=== PATIENT | male | born 1940 | race African-American/Black ===

== ENCOUNTER → 2016-08-09 | Outpatient (CLI) | payer MEDICARE ==
[~2016-08-09] MED LIST: ASPI81TA82 PO; CIPR500T4 PO; JALYCAP PO; LEVO.1 PO; METO25 PO; MOTI25CH PO; OMEGCAP21 PO; PERC5TAB12 PO; PIOG30 PO; PRIN5TAB PO; ROSU40 PO
[2016-08-09 13:28] LABS: ANION GAP 8 MEQ/L (5-15); AST (GOT) 43 U/L (15-37); BICARBONATE 26.1 MEQ/L (21.0-32.0); BLOOD UREA NITROGEN 17 MG/DL (7-18); CHLORIDE 99 MEQ/L (98-107); GLOMERULAR FILTRATION RATE 53 ML/MIN (>89); SODIUM (NA) 133 MEQ/L (136-145)
[2016-08-09 13:36] LABS: ALKALINE PHOSPHATASE 64 U/L (45-117); ALT (GPT) 37 U/L (12-78); GLUCOSE,FASTING 343 MG/DL (74-99); HDL CHOLESTEROL 56.4 MG/DL (40.0-60.0); LDL CHOLESTEROL 41 MG/DL (0-99); TOTAL BILIRUBIN ADULT 1.1 MG/DL (0.2-1.0); URIC ACID 6.1 MG/DL (2.6-7.2)
[2016-08-09 13:44] LABS: POTASSIUM 4.9 MEQ/L (3.5-5.1)
[2016-08-09 18:29] LABS: HEMOGLOBIN A1a 1.4 %; HEMOGLOBIN A1b 1.3 %; HEMOGLOBIN Ao 69.6 %; HEMOGLOBIN F 2.5 %; HEMOGLOBIN LA1C 3.9 %; HEMOGLOBIN P3 6.1 %
== END ==
LOC: PLAB 10:45
PROVIDERS: ATTEND Family Medicine
DX: E03.9 Hypothyroidism, unspecified (principal); E55.9 Vitamin D deficiency, unspecified; E78.5 Hyperlipidemia, unspecified; M10.9 Gout, unspecified; E11.65 Type 2 diabetes mellitus with hyperglycemia
CPT/HCPCS: 36415; 80053; 80061; 82306; 83036; 84443; 84550

== ENCOUNTER → 2016-09-18 | Outpatient (CLI) | payer MEDICARE | LOC: PLAB 08:30 | PROVIDERS: ATTEND Urology | DX: R97.20 Elevated prostate specific antigen [PSA] (principal) | CPT/HCPCS: 36415; 84153; 84154 ==

== ENCOUNTER → 2016-10-30 | Outpatient (CLI) | payer MEDICARE ==
[2016-10-30 15:21] LABS: AUTOMATED NEUTROPHIL # 2.9 TH/MM3 (1.8-7.7); BASOPHIL % 0.7 % (0.0-2.0); EOSINOPHIL # 0.1 TH/MM3 (0-0.4); EOSINOPHIL % 1.7 % (0.0-4.0); HEMATOCRIT 43.4 % (39.0-51.0); LYMPH % 36.5 % (9.0-44.0); LYMPHOCYTE # 2.1 TH/MM3 (1.0-4.8); MEAN CELL VOLUME 89.5 FL (80.0-100.0); MEAN CORPUSCULAR HEMOGLOBIN 28.7 PG (27.0-34.0); MEAN CORPUSCULAR HGB CONC 32.1 % (32.0-36.0); MONO % 10.3 % (0.0-8.0); NEUT % 50.8 % (16.0-70.0); PLATELET COUNT 106 TH/MM3 (150-450); RED BLOOD COUNT 4.85 MIL/MM3 (4.50-5.90); RED CELL DISTRIBUTION WIDTH 16.7 % (11.6-17.2); WHITE BLOOD COUNT 5.7 TH/MM3 (4.0-11.0)
[2016-10-30 15:32] LABS: HEMO FLAGS DIFF FINAL
[2016-10-30 17:07] LABS: ALKALINE PHOSPHATASE 68 U/L (45-117); ALT (GPT) 59 U/L (12-78); ANION GAP 9 MEQ/L (5-15); AST (GOT) 48 U/L (15-37); BICARBONATE 26.1 MEQ/L (21.0-32.0); BLOOD UREA NITROGEN 18 MG/DL (7-18); CHLORIDE 107 MEQ/L (98-107); FREE T4 1.11 NG/DL (0.76-1.46); GLOMERULAR FILTRATION RATE 55 ML/MIN (>89); POTASSIUM 3.9 MEQ/L (3.5-5.1); SODIUM (NA) 142 MEQ/L (136-145); TOTAL BILIRUBIN ADULT 1.2 MG/DL (0.2-1.0); URIC ACID 7.1 MG/DL (2.6-7.2)
[2016-10-30 17:33] LABS: HEMOGLOBIN A1a 1.3 %; HEMOGLOBIN A1b 1.7 %; HEMOGLOBIN Ao 83.7 %; HEMOGLOBIN P3 3.7 %
== END ==
LOC: PLAB 14:10
PROVIDERS: ATTEND Family Medicine
DX: I10 Essential (primary) hypertension (principal); E11.65 Type 2 diabetes mellitus with hyperglycemia; E78.5 Hyperlipidemia, unspecified; M10.9 Gout, unspecified; E03.9 Hypothyroidism, unspecified
CPT/HCPCS: 36415; 80053; 83036; 84439; 84443; 84550; 85025

== ENCOUNTER → 2017-03-01 | Outpatient (CLI) | payer MEDICARE ==
[2017-03-01 13:32] LABS: AUTOMATED NEUTROPHIL # 2.1 TH/MM3 (1.8-7.7); BASOPHIL % 0.7 % (0.0-2.0); EOSINOPHIL # 0.1 TH/MM3 (0-0.4); EOSINOPHIL % 2.4 % (0.0-4.0); HEMATOCRIT 50.6 % (39.0-51.0); HEMO FLAGS DIFF FINAL; LYMPH % 41.4 % (9.0-44.0); MEAN CELL VOLUME 88.3 FL (80.0-100.0); MEAN CORPUSCULAR HEMOGLOBIN 28.6 PG (27.0-34.0); MEAN CORPUSCULAR HGB CONC 32.4 % (32.0-36.0); MONO % 12.2 % (0.0-8.0); NEUT % 43.3 % (16.0-70.0); PLATELET COUNT 123 TH/MM3 (150-450); RED BLOOD COUNT 5.73 MIL/MM3 (4.50-5.90); RED CELL DISTRIBUTION WIDTH 17.3 % (11.6-17.2); WHITE BLOOD COUNT 4.8 TH/MM3 (4.0-11.0)
[2017-03-01 13:42] LABS: HEMOGLOBIN A1a 1.3 %; HEMOGLOBIN A1b 2.2 %; HEMOGLOBIN Ao 80.7 %; HEMOGLOBIN LA1C 2.4 %; HEMOGLOBIN P3 4.6 %
[2017-03-01 14:08] LABS: WESTERGREN SEDIMENTATION RATE 1 mm/hr (0-20)
== END ==
LOC: PLAB 09:53
DX: G45.3 Amaurosis fugax (principal)
CPT/HCPCS: 36415; 83036; 85025; 85652; 86140

== ENCOUNTER → 2017-07-15 | Outpatient (CLI) | payer MEDICARE ==
[2017-07-15 11:15] LABS: ALBUMIN 3.7 GM/DL (3.4-5.0); ALT (GPT) 17 U/L (12-78); AST (GOT) 24 U/L (15-37); BICARBONATE 27.2 MEQ/L (21.0-32.0); BLOOD UREA NITROGEN 17 MG/DL (7-18); CALCIUM 8.9 MG/DL (8.5-10.1); CHLORIDE 103 MEQ/L (98-107); CHOLESTEROL 132 MG/DL (120-200); CREATININE 1.54 MG/DL (0.60-1.30); GLOMERULAR FILTRATION RATE 53 ML/MIN (>89); GLUCOSE,FASTING 113 MG/DL (74-99); SODIUM (NA) 139 MEQ/L (136-145)
[2017-07-15 11:24] LABS: ALKALINE PHOSPHATASE 40 U/L (45-117); CHOLESTEROL/ HDL RATIO 2.06 RATIO; HDL CHOLESTEROL 63.9 MG/DL (40.0-60.0); LDL CHOLESTEROL 60 MG/DL (0-99); THYROXINE (T4) 10.8 MCG/DL (4.5-12.1); TOTAL BILIRUBIN ADULT 1.2 MG/DL (0.2-1.0); TOTAL PROTEIN 7.7 GM/DL (6.4-8.2); TRIGLYCERIDES 42 MG/DL (42-150)
== END ==
LOC: PLAB 09:03
PROVIDERS: ATTEND Internal Medicine Interventional Cardiology
DX: R94.39 Abnormal result of other cardiovascular function study (principal); R60.0 Localized edema; I10 Essential (primary) hypertension; E78.2 Mixed hyperlipidemia; Z79.899 Other long term (current) drug therapy
CPT/HCPCS: 36415; 80053; 80061; 82550; 84436; 84443

== ENCOUNTER 2017-10-07 12:23 | Emergency (ER) | payer MEDICARE ==
[~2017-10-07] VITALS: Ht 167.6 cm; Wt 84.6 kg
[2017-10-07 12:26] VITALS: BP 219/88; PULSE 87; RESP 16; TEMP 97.5; O2SAT 98
[2017-10-07 13:13] LABS: BILIRUBIN, URINE NEG (NEG); BLOOD, URINE TRACE (NEG); GLUCOSE,URINE 1000 OR GREATER mg/dL (NEG); KETONE, URINE NEG (NEG); NITRITE,URINE NEG (NEG); URINE COLOR YELLOW (YELLW/STRAW); URINE LEUKOCYTE ESTERASE NEG (NEG)
--- NOTE | 2017-10-07 13:18 | PD ---
HPI Chief Complaint: Flank/Kidney Pain Time Seen by Provider: 12:34 Travel History International Travel<30 days: No Contact w/Intl Traveler<30days: No Traveled to known affect area: No History of Present Illness HPI This 77-year-old male is complaining of left flank pain. Pain is been going on for several days. It is aggravated by certain movements. He has not noted any dysuria or hematuria. He is concerned that it may be his kidney. The pain was quite severe at times. It is a bit intermittent. There is no associated fever vomiting or diarrhea. Seem to be aggravated by certain movements of his neck PFSH Past Medical History Hx Anticoagulant Therapy: Yes AAA: Yes (aortic arch aneurysm repair 2008) Heart Rhythm Problems: No Cardiac Catheterization: Yes Cardiovascular Problems: Yes (htn) High Cholesterol: Yes Chest Pain: Yes Congestive Heart Failure: No Diabetes: Yes Patient Takes Glucophage: No Diminished Hearing: No Gastrointestinal Disorders: No Genitourinary: Yes (enlarge prostate) Hypertension: Yes Musculoskeletal: No Neurologic: No Reproductive: No Respiratory: No Myocardial Infarction: No Sleep Apnea: Yes Thyroid Disease: Yes ?: Not Past Surgical History Abdominal Surgery: Yes (HERNIA REPAIR - inguinal & umbilical hernia repair 2002 ) Cardiac Surgery: Yes (AAA REPAIR) Ear Surgery: No Endocrine Surgery: No Eye Surgery: No Genitourinary Surgery: Yes (vasectomy 2006) Gynecologic Surgery: No Neurologic Surgery: No Oral Surgery: No Thoracic Surgery: No Other Surgery: Yes (HERNIA REPAIRS) Social History Alcohol Use: Yes (RARELY) Tobacco Use: No Substance Use: No Allergies-Medications (Allergen,Severity, Reaction): Coded Allergies: No Known Allergies (Verified Adverse Reaction, Unknown, 10/07/17) Reported Meds & Prescriptions Reported Meds & Active Scripts Active Reported Actos (Pioglitazone HCl) 30 Mg Tab 30 Mg PO DAILY Aspirin Children's (Aspirin) 81 Mg Chew 81 Mg CHEW DAILY Synthroid (Levothyroxine Sodium) 100 Mcg Tab 100 Mcg PO DAILY Crestor (Rosuvastatin Calcium) 40 Mg Tab 40 Mg PO DAILY Lisinopril 5 Mg Tab 5 Mg PO DAILY Review of Systems General / Constitutional: No: Fever, Chills Eyes: No: Diploplia, Blurred Vision HENT: No: Headaches, Vertigo Cardiovascular: No: Chest Pain or Discomfort Respiratory: No: Cough, Shortness of Breath Gastrointestinal: No: Nausea, Vomiting, Diarrhea Genitourinary: No: Frequency, Dysuria Musculoskeletal: No: Myalgias, Arthralgias, Limited ROM Skin: No Rash, No Itching Neurologic: No: Dizziness Endocrine: No: Heat Intolerance Hematologic/Lymphatic: No: Easy Bruising Physical Exam Narrative GENERAL: Well-developed male SKIN: Focused skin assessment warm/dry. HEAD: Atraumatic. Normocephalic. EYES: Pupils equal and round. No scleral icterus. No injection or drainage. ENT: No nasal bleeding or discharge. Mucous membranes pink and moist. NECK: Trachea midline. No JVD. CARDIOVASCULAR: Regular rate and rhythm. No murmur appreciated. RESPIRATORY: No accessory muscle use. Clear to auscultation. Breath sounds equal bilaterally. GASTROINTESTINAL: Abdomen soft, non-tender, nondistended. Hepatic and splenic margins not palpable. There is left CVA tenderness MUSCULOSKELETAL: No obvious deformities. No clubbing. No cyanosis. No edema. NEUROLOGICAL: Awake and alert. No obvious cranial nerve deficits. Motor grossly within normal limits. Normal speech. PSYCHIATRIC: Appropriate mood and affect; insight and judgment normal. Data Data Last Documented VS Vital Signs Date Time Temp Pulse Resp B/P (MAP) Pulse Ox O2 Delivery O2 Flow Rate FiO2 10/07/17 14:50 84 16 98 10/07/17 12:26 97.5 Orders Orders Urinalysis - C+S If Indicated (10/07/17 12:24) Ct Abd/Pel W/O Iv Contrast (10/07/17 12:48) Labs Laboratory Tests Test 10/07/17 13:08 Urine Collection Type VOIDED Urine Color YELLOW Urine Turbidity CLEAR Urine pH 6.0 Urine Specific [place] 1.010 Urine Protein NEG mg/dL Urine Glucose (UA) 1000 OR GREATER mg/dL Urine Ketones NEG mg/dL Urine Occult Blood TRACE Urine Nitrite NEG Urine Bilirubin NEG Urine Urobilinogen 0.2 MG/DL Urine Leukocyte Esterase NEG Urine WBC 0-2 /hpf Urine Squamous Epithelial Cells 0-2 /hpf Microscopic Urinalysis Comment CULT NOT INDICATED MDM Medical Decision Making Medical Screen Exam Complete: Yes Emergency Medical Condition: Yes Medical Record Reviewed: Yes Differential Diagnosis Differential l includes muscular pain, renal colic, space-occupying lesion Narrative Course Urine is negative. CT is shows a small cyst on the left kidney. Otherwise negative. EKG shows a Wenckebach rhythm. Patient is not having any chest pain to follow-up with his own medical doctor Diagnosis Primary Impression: Flank pain Disposition: 01 DISCHARGE HOME Condition: Stable Maxime Saez MD Oct 07, 2017 13:18
[2017-10-07 13:21] LABS: SQUAMOUS EPITHELIAL CELL URINE 0-2 /hpf (0-5); WBC, URINE 0-2 /hpf (0-5)
[2017-10-07 13:57] VITALS: BP 201/79
[2017-10-07] MEDS ORDERED: ASPI81CH7 CHEW (14:17)
[2017-10-07] MEDS ORDERED: PIOG30 PO (14:17)
[2017-10-07] MEDS ORDERED: ROSU40 PO (14:17)
[2017-10-07] MEDS ORDERED: LISI-519 PO (14:17)
[2017-10-07] MEDS ORDERED: LEVO.1 PO (14:17)
--- NOTE | 2017-10-07 14:42 | RADRPT ---
EXAM DATE/TIME: 10/07/2017 14:27 [facility] COMPARISON: No previous studies available for comparison. INDICATIONS : Left flank pain. ORAL CONTRAST: No oral contrast ingested. RADIATION DOSE: 12.43 CTDIvol (mGy) MEDICAL HISTORY : Hypertension. Aneurysm, abdominal. SURGICAL HISTORY : Abdominal aortic aneurysm repair. Hernia repair. ENCOUNTER: Initial ACUITY: 3 days PAIN SCALE: 6/10 LOCATION: Left flank TECHNIQUE: Volumetric scanning of the abdomen and pelvis was performed. Using automated exposure control and ad justment of the mA and/or kV according to patient size, radiation dose was kept as low as reasonably achievable to obtain optimal diagnostic quality images. DICOM format image data is available electro nically for review and comparison. FINDINGS: LOWER LUNGS: The visualized lower lungs are clear. LIVER: Homogeneous density without lesion. There is no dilation of the biliary tree. There is high density layering dependently in the gallbladder with no wall thickening or inflammatory change. SPLEEN: Normal size without lesion. PANCREAS: Within normal limits. KIDNEYS: Normal in size and shape. There is no solid mass, stone, or hydronephrosis. There is an apparent sma ll low density cyst involving the posterior mid left kidney measuring approximately 9 Hounsfield unit s. ADRENAL GLANDS: Within normal limits. VASCULAR: There is no aortic aneurysm. BOWEL/MESENTERY: The stomach, small bowel, and colon demonstrate no acute abnormality. There is no free intraperitone al air or fluid. ABDOMINAL WALL: Postsurgical changes are noted status post hernia repair with no evidence of recurrent hernia. There are postsurgical changes in the anterior pelvis as well. RETROPERITONEUM: There is no lymphadenopathy. BLADDER: No wall thickening or mass. REPRODUCTIVE: Within normal limits. INGUINAL: There is no lymphadenopathy or hernia. MUSCULOSKELETAL: Within normal limits for patient age. CONCLUSION: 1. The kidneys are unremarkable in appearance except for a probable small cyst in the left kidney. Th ere are no renal calculi or obstruction. 2. High density material in the gallbladder which could represent sludge or stones. 3. Postsurgical changes status post hernia repairs. Trae Lopez MD on October 07, 2017 at 14:37 Board Certified Radiologist. This report was verified electronically.
--- NOTE | 2017-10-07 20:44 | EKG ---
Date Performed: 10/07/2017 Time Performed: 14:10:57 PTAGE: 77 years EKG: SINUS BRADYCARDIA WITH 2ND DEGREE AV BLOCK, MOBITZ TYPE 1 NONSPECIFIC T-WAVE ABNORMALITY AB NORMAL ECG PREVIOUS TRACING : 02/14/2016 10.34 Compared to previous tracing, Wenckebach phenomena is now e vident. DOCTOR: Indra Vazquez Interpretating Date/Time 10/07/2017 20:42:56
== END 2017-10-07 14:59 | disposition home or self-care (01) ==
LOC: PHED 12:23
DX: N28.1 Cyst of kidney, acquired (principal); R00.1 Bradycardia, unspecified; I44.1 Atrioventricular block, second degree; R94.31 Abnormal electrocardiogram [ECG] [EKG]; I10 Essential (primary) hypertension; E78.00 Pure hypercholesterolemia, unspecified; E11.9 Type 2 diabetes mellitus without complications; E07.9 Disorder of thyroid, unspecified; G47.30 Sleep apnea, unspecified
CPT/HCPCS: 74176; 81001; 93005; 99285

== ENCOUNTER → 2017-11-19 | Outpatient (CLI) | payer MEDICARE ==
[~2017-11-19] MED LIST changes: +ASPI81CH7 CHEW; -ASPI81TA82 PO; -CIPR500T4 PO; -JALYCAP PO; +LISI-519 PO; -METO25 PO; -MOTI25CH PO; -OMEGCAP21 PO; -PERC5TAB12 PO; -PRIN5TAB PO
[2017-11-19 14:03] LABS: AUTOMATED NEUTROPHIL # 1.9 TH/MM3 (1.8-7.7); BASOPHIL % 0.8 % (0.0-2.0); EOSINOPHIL # 0.1 TH/MM3 (0-0.4); EOSINOPHIL % 2.1 % (0.0-4.0); HEMATOCRIT 47.8 % (39.0-51.0); HEMOGLOBIN 15.6 GM/DL (13.0-17.0); LYMPH % 42.7 % (9.0-44.0); MEAN CELL VOLUME 91.9 FL (80.0-100.0); MEAN CORPUSCULAR HEMOGLOBIN 30.1 PG (27.0-34.0); MEAN CORPUSCULAR HGB CONC 32.7 % (32.0-36.0); MEAN PLATELET VOLUME 9.5 FL (7.0-11.0); MONO % 12.1 % (0.0-8.0); MONOCYTE # 0.6 TH/MM3 (0-0.9); NEUT % 42.3 % (16.0-70.0); PLATELET COUNT 118 TH/MM3 (150-450); RED CELL DISTRIBUTION WIDTH 15.7 % (11.6-17.2); WHITE BLOOD COUNT 4.6 TH/MM3 (4.0-11.0)
[2017-11-19 14:09] LABS: ALBUMIN 4.1 GM/DL (3.4-5.0); AST (GOT) 21 U/L (15-37); BLOOD UREA NITROGEN 23 MG/DL (7-18); CALCIUM 9.1 MG/DL (8.5-10.1); CHLORIDE 106 MEQ/L (98-107); CREATININE 1.75 MG/DL (0.60-1.30); DIRECT BILIRUBIN ADULT 0.2 MG/DL (0.0-0.2); GLOMERULAR FILTRATION RATE 46 ML/MIN (>89); GLUCOSE,FASTING 109 MG/DL (74-99); SODIUM (NA) 139 MEQ/L (136-145)
[2017-11-19 14:10] LABS: CHOLESTEROL 124 MG/DL (120-200)
[2017-11-19 14:21] LABS: ALKALINE PHOSPHATASE 39 U/L (45-117); ALT (GPT) 22 U/L (12-78); CHOLESTEROL/ HDL RATIO 2.08 RATIO; HDL CHOLESTEROL 59.4 MG/DL (40.0-60.0); LDL CHOLESTEROL 49 MG/DL (0-99); TOTAL BILIRUBIN ADULT 1.2 MG/DL (0.2-1.0); TOTAL PROTEIN 7.8 GM/DL (6.4-8.2); TRIGLYCERIDES 79 MG/DL (42-150)
[2017-11-19 17:08] LABS: HEMOGLOBIN A1C 7.7 % (4.3-6.0)
== END ==
LOC: PLAB 08:52
PROVIDERS: ATTEND Internal Medicine Interventional Cardiology
DX: E78.2 Mixed hyperlipidemia (principal); I10 Essential (primary) hypertension; N40.1 Benign prostatic hyperplasia with lower urinary tract symptoms; E78.5 Hyperlipidemia, unspecified; M10.9 Gout, unspecified; E03.9 Hypothyroidism, unspecified; E11.65 Type 2 diabetes mellitus with hyperglycemia; Z79.899 Other long term (current) drug therapy
CPT/HCPCS: 36415; 80053; 80061; 82248; 82550; 83036; 84153; 84443; 84550; 85025